=== PATIENT | female | born 1990 | race Caucasian/White ===

== ENCOUNTER 2021-07-26 17:17 | Inpatient (IN) | payer BC, OTHER ==
[2021-07-26] MEDS ORDERED: hydrALAZINE 20 MG/ML VIAL SLOW IVP PRN ×3 (17:57→19:00)
[2021-07-26 18:08] LABS: Fetal Membranes Rupture RUPTURE DETECTED (No Rupture)
[2021-07-26 18:30] VITALS: BMI 20.3
[2021-07-26] MEDS ORDERED: Ibuprofen 800 MG TAB PO PRN ×2 (18:38→19:00)
[2021-07-26] MEDS ORDERED: Lidocaine 1% (PF) 30 ML VIAL SC PRN ×2 (18:38→19:00)
[2021-07-26] MEDS ORDERED: Promethazine HCl 25 MG/ML VIAL IM PRN ×2 (18:38→19:00)
[2021-07-26] MEDS ORDERED: Ondansetron PF 4 MG/2 ML Vial IVP PRN ×2 (18:38→19:00)
[2021-07-26] MEDS ORDERED: Penicillin G Potassium 5 MILL.UNITS in Sodium Chloride 0.9% 100 ML IVPB SCH ×2 (18:45→20:45)
[2021-07-26] MEDS ORDERED: Penicillin G 2.5 MILL.units 2.5 MILL.UNITS in Premix Bag 1 BAG IVPB SCH (18:45)
[2021-07-26] MEDS ORDERED: NS w/ Oxytocin 30 units 500 ML IV SCH ×2 (18:45→19:00)
[2021-07-26] MEDS ORDERED: Lactated Ringer's 1,000 ML IV PRN (19:00)
[2021-07-26] MEDS ORDERED: HYDROcodone/Acetaminophen 5/325 mg Tablet PO PRN ×2 (19:00)
[2021-07-26] MEDS ORDERED: Lactated Ringer's 1,000 ML IV SCH (19:15)
[2021-07-26] MEDS ORDERED: Penicillin G Potassium 5 MILL.UNITS VIAL ONE (20:35)
[2021-07-26] MEDS ORDERED: Betamet Acet/Betamet Na Ph 30 MG/5 ML VIAL IM SCH ×2 (21:15→22:00)
[2021-07-26 21:16] LABS: Mean Corpuscular HGB CONC 34.1 g/dL (32.0-36.0); Mean Corpuscular Hemoglobin 33.3 pg (27.0-33.0); Mean Corpuscular Volume 97.7 fl (81.6-98.3); Mean Platelet Volume 11.4 fl (7.4-10.4); Platelet Count 180 10x3/uL (150-450); RBC Distribution Width 12.9 % (11.5-14.5); White Blood Cell (WBC) Count 9.3 10x3/uL (3.5-10.5)
[2021-07-26 21:45] LABS: Syphilis Antibody Nonreactive (Nonreactive); Syphilis Antibody Index 0.04 S/CO (<1.00 Non-Reactive)
[2021-07-26 21:46] LABS: HIV (1/2) Antibody/Antigen Non-Reactive (NonReactive); HIV 1/2 INDEX 0.06 S/CO (<1.00); Hep B Surf Ag Non-Reactive S/CO (NonReactive)
[2021-07-26 21:54] LABS: HBSAg Index 0.14 S/CO (0-0.99)
[2021-07-26 21:58] LABS: SARS-CoV-2 NAA Rapid Test Not Detected (NotDetected)
[2021-07-27] MEDS: Penicillin G 2.5 MILL.units 2.5 MILL.UNITS in Premix Bag 1 BAG IVPB SCH ×5 (00:41→20:18)
[2021-07-27] MEDS ORDERED: Misoprostol 200 MCG TAB ONE (14:02)
[2021-07-27] MEDS ORDERED: Methylergonovine 0.2 MG/ML VIAL ONE (14:02)
[2021-07-27] MEDS ORDERED: Carboprost 250 MCG/ML AMP ONE (14:02)
[2021-07-27] MEDS ORDERED: hydrALAZINE 20 MG/ML VIAL SLOW IVP PRN (17:39)
[2021-07-27] MEDS ORDERED: Bisacodyl 10 MG SUPP PR PRN (17:39)
[2021-07-27] MEDS ORDERED: Methylergonovine 0.2 MG/ML VIAL IM PRN (17:39)
[2021-07-27] MEDS ORDERED: HYDROcodone/Acetaminophen 5/325 mg Tablet PO PRN ×2 (17:39)
[2021-07-27] MEDS ORDERED: NS w/ Oxytocin 30 units 500 ML IV SCH (17:39)
[2021-07-27] MEDS ORDERED: Lanolin Ointment 7 GM TUBE TOP PRN (17:39)
[2021-07-27] MEDS ORDERED: Milk Of Magnesia 30 ML UDCUP PO PRN (17:39)
[2021-07-27] MEDS ORDERED: Benzocaine-Menthol 82.5 ML CAN TOP PRN (17:39)
[2021-07-27] MEDS ORDERED: Misoprostol 200 MCG TAB VAG PRN (17:39)
[2021-07-27] MEDS ORDERED: Ferrous Sulfate 325 MG TAB PO SCH (18:00)
[2021-07-27] MEDS: Docusate 100 MG CAP PO SCH (22:08)
[2021-07-28] MEDS: Ibuprofen 800 MG TAB PO SCH ×3 (03:20→14:00)
[2021-07-28] MEDS: Ferrous Sulfate 325 MG TAB PO SCH ×2 (07:40→17:11)
[2021-07-28] MEDS: Prenatal Vitamin 1 TAB PO SCH (08:48)
[2021-07-28] MEDS: Docusate 100 MG CAP PO SCH ×2 (09:09→21:26)
[2021-07-28] MEDS ORDERED: Boostrix 0.5 ML (Tdap) VIAL IM ONE (17:39)
[2021-07-29] MEDS: Ibuprofen 800 MG TAB PO SCH ×2 (03:36→05:32)
[2021-07-29 08:02] VITALS: BP 92/60; TEMP 97.9
[2021-07-29] MEDS: Ferrous Sulfate 325 MG TAB PO SCH (08:22)
[2021-07-29] MEDS: Docusate 100 MG CAP PO SCH (08:25)
[2021-07-29] MEDS: Prenatal Vitamin 1 TAB PO SCH (08:26)
== END 2021-07-29 12:15 | disposition home or self-care (01) | DRG 805 ==
LOC: CSHLD/OP 17:17 → CSHLD 20:08 → CSHPP 07-27 17:50
PROVIDERS: ADMIT Obstetrics & Gynecology; ATTEND Obstetrics & Gynecology
PROC: 10E0XZZ Delivery of Products of Conception, External Approach (ICD-10-PCS; principal; 2021-07-27)
DX: O42.013 Preterm premature rupture of membranes, onset of labor within 24 hours of rupture, third trimester (principal); O60.14X0 Preterm labor third trimester with preterm delivery third trimester, not applicable or unspecified; Z37.0 Single live birth; Z3A.34 34 weeks gestation of pregnancy; O36.5930 Maternal care for other known or suspected poor fetal growth, third trimester, not applicable or unspecified; Z20.822 Contact with and (suspected) exposure to COVID-19; O69.81X0 Labor and delivery complicated by cord around neck, without compression, not applicable or unspecified
CPT/HCPCS: 76815; 84112; 85027; 86780; 86850; 86900; 86901; 87340; 87389; 99285; J0702; J2540; J3490; U0002

== ENCOUNTER 2022-07-12 09:32 | Outpatient (CLI) | payer BC | END 2022-07-12 09:33 | disposition home or self-care (01) | LOC: CSHRAD 09:32 | PROVIDERS: ATTEND Nurse Practitioner Family | DX: Z01.818 Encounter for other preprocedural examination (principal) | CPT/HCPCS: 71046 ==